=== PATIENT | female | born 1995 | race Two or more races ===

== ENCOUNTER 2021-10-17 10:35 | Outpatient (CLI) | payer OTHER | END 2021-10-17 10:38 | disposition home or self-care (01) | LOC: SONOGRAMA 10:35 | PROVIDERS: ATTEND Pathology Anatomic Pathology & Clinical Pathology | DX: E04.1 Nontoxic single thyroid nodule (principal) ==

== ENCOUNTER 2024-08-14 08:38 | Outpatient (CLI) | payer OTHER | END 2024-08-14 08:46 | disposition home or self-care (01) | LOC: PRENATAL 08:38 | PROVIDERS: ATTEND Obstetrics & Gynecology Maternal & Fetal Medicine | DX: O36.80X0 Pregnancy with inconclusive fetal viability, not applicable or unspecified (principal); Z36.82 Encounter for antenatal screening for nuchal translucency; Z14.8 Genetic carrier of other disease; O99.019 Anemia complicating pregnancy, unspecified trimester; Z3A.11 11 weeks gestation of pregnancy ==

== ENCOUNTER → 2024-10-20 09:51 | Outpatient (CLI) | payer OTHER | END | disposition home or self-care (01) | LOC: PRENATAL 09:51 | PROVIDERS: ATTEND Obstetrics & Gynecology Maternal & Fetal Medicine | DX: O35.9XX0 Maternal care for (suspected) fetal abnormality and damage, unspecified, not applicable or unspecified (principal); O35.3XX0 Maternal care for (suspected) damage to fetus from viral disease in mother, not applicable or unspecified; O44.00 Complete placenta previa NOS or without hemorrhage, unspecified trimester; O44.02 Complete placenta previa NOS or without hemorrhage, second trimester; Z3A.22 22 weeks gestation of pregnancy; O99.012 Anemia complicating pregnancy, second trimester ==

== ENCOUNTER → 2025-01-07 13:58 | Outpatient (CLI) | payer OTHER | END | disposition home or self-care (01) | LOC: PRENATAL 13:58 | PROVIDERS: ATTEND Obstetrics & Gynecology Maternal & Fetal Medicine | DX: O26.849 Uterine size-date discrepancy, unspecified trimester (principal); O36.8199 Decreased fetal movements, unspecified trimester, other fetus; O99.019 Anemia complicating pregnancy, unspecified trimester; Z3A.33 33 weeks gestation of pregnancy ==

== ENCOUNTER 2025-02-08 18:08 | Outpatient (CLI) | payer OTHER ==
[~2025-02-08] VITALS: Ht 152.4 cm; Wt 108.4 kg
[2025-02-08 15:32] VITALS: BP 100/54
[2025-02-08 17:29] VITALS: BP 100/54
[2025-02-08 17:32] VITALS: BP 100/54
[2025-02-08] MEDS ORDERED: RINGERS SOLUTION,LACTATED 1,000 ML IV SCH (18:45)
[2025-02-08] MEDS ORDERED: PRENATAL + DHA1 EAC1 PO (19:08)
[2025-02-08 19:14] LABS: BASO % 0.1 % (0.1-1.2); EOS # 0.05 (0.04-0.54); EOS % 0.6 % (0.7-7.0); HEMATOCRIT 31.3 % (34.1-44.9); HEMOGLOBIN 10.6 g/dL (11.2-15.7); LYMPH # 1.04 (1.18-3.74); LYMPH % 11.9 % (19.3-53.1); MEAN CORPUSCULAR HEMOGLOBIN 25.9 pg (25.6-32.2); MONO % 4.6 % (4.7-12.5); NEUT # 7.21 (1.56-6.13); NEUT % 82.5 % (34.0-71.1); PH,URINE 6.5 (5.0-8.0); PLATELET COUNT 269 K/uL (163-369); RED BLOOD COUNT 4.09 M/uL (3.93-5.22); RED CELL DISTRIBUTION WIDTH 15.4 % (11.6-14.4); URINE APPEARANCE Clear; URINE BILIRRUBIN Negative (NEGATIVE); URINE BLOOD Small; URINE COLOR Yellow; URINE GLUCOSE Negative (NEGATIVE); URINE KETONE Trace (NEGATIVE); URINE LEUKOCYTE Small; URINE NITRATE Negative; URINE PROTEIN Negative (NEGATIVE)
[2025-02-08 19:15] LABS: URINE BACTERIA 403.7 uL (0.0-1933); URINE EPITHELIAL CELLS 12.8 uL (0.0-38.8); URINE WBC 32.7 uL (0.0-23.2)
[2025-02-08 19:16] LABS: URINE CAST 0.14 uL (0.0-1.40)
[2025-02-08 20:05] VITALS: BP 102/64
[2025-02-08 23:17] VITALS: BP 110/51
[2025-02-09 03:17] VITALS: BP 100/47
[2025-02-09 07:25] VITALS: BP 100/65
== END 2025-02-09 12:31 | disposition home or self-care (01) ==
LOC: OBS/DEL 18:08
PROVIDERS: Obstetrics & Gynecology; ATTEND Obstetrics & Gynecology
DX: O47.1 False labor at or after 37 completed weeks of gestation (principal); Z3A.37 37 weeks gestation of pregnancy

== ENCOUNTER 2025-02-20 13:30 | Inpatient (IN) | payer OTHER ==
[~2025-02-20] VITALS: Ht 177.8 cm; Wt 3.2 kg
[~2025-02-20 13:30] MED LIST: PRENATAL + DHA1 EAC1 PO
[2025-02-25 10:45] VITALS: BP 110/64
[2025-02-25] MEDS ORDERED: RINGERS SOLUTION,LACTATED 1,000 ML IV SCH (11:45)
[2025-02-25 12:22] LABS: BASO % 0.1 % (0.1-1.2); EOS # 0.02 (0.04-0.54); EOS % 0.2 % (0.7-7.0); HEMATOCRIT 35.4 % (34.1-44.9); HEMOGLOBIN 11.5 g/dL (11.2-15.7); LYMPH # 0.93 (1.18-3.74); LYMPH % 8.1 % (19.3-53.1); MEAN CORPUSCULAR HEMOGLOBIN 25.1 pg (25.6-32.2); MONO # 0.33 (0.24-0.82); MONO % 2.9 % (4.7-12.5); NEUT # 10.09 (1.56-6.13); NEUT % 88.3 % (34.0-71.1); PLATELET COUNT 285 K/uL (163-369); RED BLOOD COUNT 4.59 M/uL (3.93-5.22); RED CELL DISTRIBUTION WIDTH 15.5 % (11.6-14.4)
[2025-02-25] MEDS ORDERED: OXYTOCIN 500 ML IV SCH (12:30)
[2025-02-25] MEDS ORDERED: ERYTHROMYCIN BASE OPHT 1GM EACH TUBE OP ONE ×2 (12:50→15:31)
[2025-02-25] MEDS ORDERED: CHLORHEXIDINE GLUCONATE 120 ML BOTTLE TOP ONE ×2 (12:50→15:55)
[2025-02-25] MEDS ORDERED: OXYTOCIN 20 UNITS/1000ML RL PIGGYBAG IV ONE (12:50)
[2025-02-25] MEDS ORDERED: OXYTOCIN 20 UNITS/500ML RL PIGGYBAG IV ONE (12:50)
[2025-02-25] MEDS ORDERED: LIDOCAINE HCL 1% 10ML VIAL ONE (12:51)
[2025-02-25 12:53] LABS: INR 0.97; PARTIAL THROMBOPLASTIN TIME 26.2 SECONDS (22.0-34.0); PROTHROMBIN TIME 10.6 SECONDS (9.0-11.5)
[2025-02-25 13:19] VITALS: BP 138/63
[2025-02-25] MEDS ORDERED: MORPHINE SULFATE 4 MG/ML CARTRIDGE IV ONE (13:30)
[2025-02-25 14:49] LABS: ALBUMIN 2.5 gm/dL (3.4-5.0); BILIRUBIN TOTAL 0.63 mg/dL (0.3-1.2); CALCIUM 8.6 mg/dL (8.5-10.1); CREATININE SERUM 0.6 mg/dL (0.55-1.02); GFR 118.19; POTASSIUM 4.11 mEq/L (3.5-5.1); TOTAL PROTEIN 6.5 gm/dL (6.4-8.2)
[2025-02-25 15:20] VITALS: BP 120/56
[2025-02-25] MEDS ORDERED: OXYTOCIN 10 UNITS/ML VIAL ONE (15:31)
[2025-02-25] MEDS ORDERED: CEFAZOLIN SODIUM 1,000 MG VIAL ONE (16:46)
[2025-02-25] MEDS ORDERED: MORPHINE SULFATE 4 MG/ML VIAL IV ONE (20:10)
[2025-02-25] MEDS ORDERED: MORPHINE SULFATE 4 MG/ML CARTRIDGE IV SCH (21:00)
[2025-02-26 01:24] VITALS: BP 111/75
[2025-02-26 08:00] VITALS: BP 94/60
[2025-02-26] MEDS ORDERED: SIMETHICONE 125 MG CAPSULE PO SCH (08:00)
[2025-02-26] MEDS ORDERED: OxyCODONE HCL 5 MG TABLET (ROXICODONE) PO PRN (08:00)
[2025-02-26] MEDS ORDERED: DOCUSATE SODIUM 100MG CAP PO SCH (08:00)
[2025-02-26] MEDS ORDERED: PNV,CALCIUM 72/IRON/FOLIC ACID 1 TAB TABLET PO SCH (08:00)
[2025-02-26] MEDS ORDERED: ACETAMINOPHEN 325 MG TABLET PO SCH (08:00)
[2025-02-26] MEDS ORDERED: OxyCODONE HCL/APAP UD (PERCOCET) PO PRN (08:00)
[2025-02-26 09:43] LABS: BASO % 0.2 % (0.1-1.2); HEMATOCRIT 31.7 % (34.1-44.9); LYMPH # 0.91 (1.18-3.74); LYMPH % 6.2 % (19.3-53.1); MEAN CORPUSCULAR HEMOGLOBIN 24.8 pg (25.6-32.2); MONO % 3.4 % (4.7-12.5); NEUT # 13.27 (1.56-6.13); NEUT % 89.9 % (34.0-71.1); PLATELET COUNT 256 K/uL (163-369); RED BLOOD COUNT 4.04 M/uL (3.93-5.22); RED CELL DISTRIBUTION WIDTH 15.7 % (11.6-14.4)
[2025-02-26 16:04] VITALS: BP 90/60
[2025-02-27 01:37] VITALS: BP 100/65
[2025-02-27 08:00] VITALS: BP 95/63
[2025-02-27 16:00] VITALS: BP 90/51
[2025-02-27 23:49] VITALS: BP 98/61
[2025-02-28 08:02] VITALS: BP 90/60
== END 2025-02-28 16:58 | disposition home or self-care (01) | DRG 788 ==
LOC: OB/GYN 02-25 11:31 → LDR 02-25 11:31 → OB/GYN 02-25 14:38 → SURG 02-27 13:30 → OB/GYN 02-28 16:58
PROVIDERS: ADMIT Obstetrics & Gynecology; ATTEND Obstetrics & Gynecology
PROC: 4A1HXCZ Monitoring of Products of Conception, Cardiac Rate, External Approach (ICD-10-PCS; 2025-02-25)
PROC: 10D00Z1 Extraction of Products of Conception, Low, Open Approach (ICD-10-PCS; principal; 2025-02-25 19:30)
DX: O33.8 Maternal care for disproportion of other origin (principal); Z3A.39 39 weeks gestation of pregnancy; Z37.0 Single live birth